=== PATIENT | female | born 1985 | race Two or more races ===

== ENCOUNTER 2017-09-05 17:00 | Emergency (ER) | payer MEDICAID ==
[2017-09-05] MEDS ORDERED: KETOROLAC 15 MG/1 ML SDV IVP ONE (17:29)
[2017-09-05] MEDS ORDERED: ACETAMINOPHEN 500 MG TAB PO ONE (18:05)
--- NOTE | 2017-09-05 18:05 | EDPHY ---
H & P Stated Complaint: left side chest pain Time Seen by Provider: 09/05/17 17:12 HPI/ROS: This patient describes onset of chest and back pain last night around 1:00 a.m. On the left upper chest and upper back that felt better when she laid down on the left side. She has had constant ongoing ache and sharp pain today in the same area that worsens with movement or with a deep breath. She has had similar episodes in the past that usually do not last this long this is the 1st time she has come in to see a physician for the symptoms. She feels that the pain knees but when she applies pressure to the affected area. She denies any recent trauma to the area. She has no other associated complaints. She came in by private vehicle. ROS: Constitutional: No fevers or chills. No fatigue. HEENT: No URI symptoms recently Pulmonary: She reports mild dyspnea that she thinks may be apprehension associated with her symptoms. No coughing. Cardiovascular: No lightheadedness. No heart palpitations no leg swelling or pain. GI: No nausea. She notes mild left lower quadrant tenderness which she persist with area but no pain at baseline. No GERD symptoms. : No dysuria. No hematuria. No flank pain. Integumentary: No skin rash or diaphoresis. Neuro: No numbness tingling weakness Comp review of symptoms otherwise negative Source: Patient Exam Limitations: No limitations - Personal History LMP (Females 10-55): Extended Cycle BCP/Inj Current Tetanus Diphtheria and Acellular Pertussis (TDAP): Yes Tetanus Vaccine Date: unsure - Medical/Surgical History PMH: Otherwise healthy Hx Asthma: No Hx Chronic Respiratory Disease: No Hx Diabetes: No Hx Cardiac Disease: No Hx Renal Disease: No Hx Cirrhosis: No Hx Alcoholism: No Hx HIV/AIDS: No Hx Splenectomy or Spleen Trauma: No Other PMH: NONE - Family History Significant Family History: No pertinent family hx - Social History Smoking Status: Never smoked Alcohol Use: None Drug Use: None - Physical Exam Exam: General Appearance: Alert, no distress. Eyes: Pupils equal and round no pallor or injection. ENT, Mouth: Mucous membranes moist. Respiratory: There are no retractions, lungs are clear to auscultation. Cardiovascular: Regular rate and rhythm. No murmur gallop rub. She has no anterior chest wall tenderness. Back: Patient has left trapezius and rhomboid area tenderness the partially reproduces her symptoms. There is associated muscle spasm in these areas. Gastrointestinal: Abdomen is soft and nontender, no masses, bowel sounds normal. Neurological: GCS 15 with no focal deficits. Skin: Warm and dry, no rashes. Musculoskeletal: Neck is supple nontender. Extremities are symmetrical, full range of motion. Psychiatric: Mood and affect normal DIFFERENTIAL DIAGNOSIS: After history and physical exam differential diagnosis was considered for musculoskeletal thoracic pain, pulmonary embolism, myocardial ischemic disease, pneumonia, pneumothorax Constitutional: Initial Vital Signs Temperature (C) 37.4 C 09/05/17 17:05 Heart Rate 89 09/05/17 17:05 Respiratory Rate 18 09/05/17 17:05 Blood Pressure 118/74 09/05/17 17:05 O2 Sat (%) 97 09/05/17 17:05 O2 Delivery Mode Room Air Allergies/Adverse Reactions: No Known Allergies Allergy (Verified 09/05/17 17:08) Home Medications: Medication Instructions Recorded Methocarbamol [Robaxin 750 mg (*)] 750 - 1,500 mg PO QID PRN #30 tab 09/05/17 Medical Decision Making - Diagnostics EKG Interpretation: 12 lead EKG performed shortly after arrival indication chest pain reveals Imaging Results: Two view chest x-ray: Normal by my interpretation Imaging: I viewed and interpreted images myself ED Course/Re-evaluation: Toradol IV with relief from 8/10 down to 5/10 This followed by Tylenol p. O. At 6:05 p.m. At 6:25 p.m. The patient's pain is down to 2 3/10 and she feels improved. Monitor-stable without ectopy Studies: Troponin is normal. D-dimer is normal/negative, metabolic panel normal, CBC normal Discussion: Patient with thoracic back pain associated with trapezius and rhomboid muscle spasm and associated anterior chest pain. Her workup today includes a normal chest x-ray, EKG, D-dimer troponin basic metabolic panel and CBC. No evidence After workup of pulmonary embolism, pneumothorax, cardiac ischemia or other red flag findings. Based on her exam and negative workup, I think that the source of her symptoms is musculoskeletal. I counseled patient regarding muscle spasm, stretches, ibuprofen Tylenol methocarbamol as the plan follow up with primary care physician for any ongoing symptoms. She understands need to return emergency department should she develop additional symptoms or worsening of current symptoms despite the treatment plan. - Data Points Laboratory Results: 09/05/17 09/05/17 17:42 17:32 POC Sodium 140 mEq/L mEq/L (135-145) POC Potassium 3.5 mEq/L mEq/L (3.3-5.0) POC Chloride 108.0 mEq/L mEq/L (97-110) POC Total CO2 23 mEq/L mEq/L (22-31) POC BUN 9 mg/dL mg/dL (7-23) POC Creatinine 0.6 mg/dL mg/dL (0.6-1.0) POC Glucose 100 mg/dL mg/dL (70-100) POC Calcium 9.0 mg/dL mg/dL (8.5-10.4) POC Troponin I 0.01 ng/mL ng/mL (0.00-0.08) Medications Given: Discontinued Medications Ketorolac Tromethamine (Toradol) 15 mg IVP EDNOW ONE Stop: 09/05/17 17:30 Last Admin: 09/05/17 17:32 Dose: 15 mg Point of Care Test Results: CBC CBC Collection Date 09/05/17 CBC Collection Time 17:30 WBC 9.9 RBC 4.35 HGB 12.9 HCT 39.4 PLT 252 Neut # 7.1 Neut 71.5 LYMPH # 2.3 LYMPH 23.6 Other WBC # 0.5 Other WBC 4.9 MCV 90.6 Chemistry 09/05/17 09/05/17 17:42 17:32 POC Sodium 140 mEq/L mEq/L (135-145) POC Potassium 3.5 mEq/L mEq/L (3.3-5.0) POC Chloride 108.0 mEq/L mEq/L (97-110) POC Total CO2 23 mEq/L mEq/L (22-31) POC BUN 9 mg/dL mg/dL (7-23) POC Creatinine 0.6 mg/dL mg/dL (0.6-1.0) POC Glucose 100 mg/dL mg/dL (70-100) POC Calcium 9.0 mg/dL mg/dL (8.5-10.4) POC Troponin I 0.01 ng/mL ng/mL (0.00-0.08) D-Dimer D-Dimer Collection Date 09/05/17 D-Dimer Collection Time 17:30 D-Dimer (ng/ml) <100 Departure - Departure Disposition: Home, Routine, Self-Care Clinical Impression: Acute thoracic back pain Qualifiers: Back pain laterality: left Qualified Code(s): M54.6 - Pain in thoracic spine Chest pain Qualifiers: Chest pain type: precordial pain Qualified Code(s): R07.2 - Precordial pain Condition: Good Instructions: Chest Pain (ED), Muscle Strain (ED), Back Pain (ED) Additional Instructions: Diagnosis: Thoracic back pain 2. Chest pain 3. Muscle spasm Your chest pain is likely stemming from the upper back pain caused by muscle spasm and tightness in the trapezius and rhomboid muscle area. You're chest x-ray, EKG, heart enzyme, blood count, electrolytes are all normal today. We did a D-dimer test to evaluate for potential blood clot and that is also negative. Plan: Take ibuprofen and Tylenol for pain as needed. You may also try hot baths, massage gentle stretches. Also consider methocarbamol muscle relaxant to use in addition. This can safely be taken with ibuprofen and Tylenol. Follow up primary care physician for any ongoing symptoms. Return emergency department for any significant worsening despite the treatment plan. Referrals: NONE *PRIMARY CARE P,. [Primary Care Provider] - As per Instructions Amber Luz DO [Doctor of Osteopathy] - As per Instructions Prescriptions: Methocarbamol [Robaxin 750 mg (*)] 750 - 1,500 mg PO QID PRN #30 tab PRN Reason: Muscle Spasms
[2017-09-05 18:24] VITALS: BP 104/61
--- NOTE | 2017-09-06 14:14 | CPEKG ---
Heart Rate: 75 RR Interval: 800 P-R Interval: 136 QRSD Interval: 84 QT Interval: 392 QTC Interval: 438 P [place]: 68 QRS [place]: 6 T Wave [place]: 35 EKG Severity - NORMAL ECG - EKG Impression: SINUS RHYTHM Electronically Signed By: Ridge Rios 07-Sep-2017 10:42:35
== END 2017-09-05 18:48 | disposition home or self-care (01) ==
LOC: CED 17:00
DX: M54.6 Pain in thoracic spine (principal); R07.2 Precordial pain
CPT/HCPCS: 71046-PO; 80048-PO; 84484-PO; 96374; J1885